=== PATIENT | male | born 1965 ===

== ENCOUNTER → 2025-10-06 11:04 | Outpatient (BNVA) | payer OTHER, SELFPAY | PROVIDERS: Visit Provider Podiatrist Foot & Ankle Surgery | DX: M79.671 Pain in right foot (principal); M79.672 Pain in left foot; M19.071 Primary osteoarthritis, right ankle and foot; Q66.71 Congenital pes cavus, right foot; Q66.72 Congenital pes cavus, left foot; M19.072 Primary osteoarthritis, left ankle and foot | CPT/HCPCS: 73630; 99204 ==

== ENCOUNTER 2025-11-05 07:05 | Outpatient (CLI) | payer OTHER, SELFPAY ==
--- NOTE | 2025-11-05 07:16 | MR_ITS ---
WS: [id number] MRI RIGHT SHOULDER HISTORY: RULE OUT RCT COMPARISON: None available. TECHNIQUE: Multiplanar sequences of the shoulder joint are submitted. Severe AC joint arthritis. Increased T2 signal to the AC joint and distal clavicle and acromion. Small erosions in the acromion and clavicle. Osteophyte encroachment upon the myotendinous portion of the supraspinatus. Mild downsloping of the acromion. Small amount of fluid in the subacromial and subdel toid bursa. No os acromion. Biceps tendon in normal position in the bicipital groove. There is abnormal signal and thickening in the biceps tendon as it crosses the rotator cuff interval. There is increased T2 signal fluid within the biceps tendon and surrounding the biceps tendon. Fluid extends distally along the tendon sheath. Small joint effusion surrounding the humeral head. There is a small amount of signal within the fluid suggesting intra-articular bodies. Bursa in the subscapularis recess is enlarged and loculated. There is a small amount of fluid in the axillary pouch. Increased T2 signal in the distal supraspinatus tendon. No definite tear is identified. Surface irregularity and fraying along the bursal and articular surfaces of the tendon. Increased signal and narrowing of the distal subscapularis tendon. Suspicious for an interstitial tear distally near the coracohumeral interval. This is also closely associated with the abnormal signal in the biceps tendon. Abnormal signal in the rotator cuff interval. No labral tear identified. MR/MR shoulder RT wo con* [id number] IMPRESSION: 1. Severe AC joint arthropathy with mild encroachment upon the myotendinous po rtion of the supraspinatus. 2. Mild downsloping of the acromion and subacromial impingement. 3. Biceps tendon remains in the bicipital groove but there is abnormal signal as it crosses through the rotator cuff interval. Intermediate signal with thick ening of the tendon from tendinopathy. There is additional fluid within the ten don sheath. 4. Interstitial tear with atrophy involving the distal subscapularis tendon. T ear is noted as the tendon extends through the rotator cuff interval. 5. Moderate tendinopathy in the distal supraspinatus tendon. There is signific ant fraying and irregularity along both the bursal and articular surface of the tendon. 6. Edema in the rotator cuff interval. 7. Glenohumeral joint effusion, small. There are a few loose bodies and hetero geneity within the joint effusion.
== END 2025-11-05 07:06 | disposition home or self-care (01) ==
LOC: RAD 07:05
PROVIDERS: PCP Family Medicine; Visit Provider Physician Assistant
DX: M19.011 Primary osteoarthritis, right shoulder (principal)
CPT/HCPCS: 73221